=== PATIENT | male | born 1955 | race Caucasian/White ===

== ENCOUNTER 2025-09-16 09:24 | Inpatient (IN) | payer MEDICARE, SELFPAY ==
[2025-09-16] VITALS (13 sets, daily range): BP systolic 137–162; BP diastolic 76–102; PULSE 68–144; RESP 14–25; TEMP 36.1–37.3; O2SAT 95–99; BMI 37.5; BMI 36.4
--- NOTE | 2025-09-16 | ECG_ITS ---
Test Reason : tachycardia Blood Pressure : */* mmHG Vent. Rate : 126 BPM Atrial Rate : * BPM P-R Int : * ms QRS Dur : 78 ms QT Int : 300 ms P-R-T Axes : * 60 2 degrees QTcB Int : 434 ms Atrial fibrillation with rapid ventricular response Nonspecific ST abnormality Abnormal ECG When compared with ECG of 16-Sep-2025 13:31, No significant change was found Referred By: Oksana Gregg Electronically Signed By: RALPH GRIFFIN MD
--- NOTE | 2025-09-16 | ECG_ITS ---
Test Reason : SOB Blood Pressure : */* mmHG Vent. Rate : 90 BPM Atrial Rate : * BPM P-R Int : * ms QRS Dur : 80 ms QT Int : 380 ms P-R-T Axes : * 6 2 degrees QTcB Int : 464 ms Atrial fibrillation Septal infarct , age undetermined Abnormal ECG No previous ECGs available Referred By: Gloria Bauman Electronically Signed By: RALPH GRIFFIN MD
--- NOTE | ~2025-09-16 | XR_ITS ---
EXAMINATION: XR CHEST CLINICAL INFORMATION: SOB COMPARISON: Degenerative 2009 is not available on PACS. TECHNIQUE: Frontal view of the chest was obtained. FINDINGS: Poor inspiration. No consolidation, pleural effusion or pneumothorax. Cardiomediastinal silhouette size is normal. Level spondylosis. Degenerative changes in the shoulders. XR/XR chest 1V IMPRESSION: No gross acute airspace disease. Poor inspiration. Electronically signed by: Moises Avery MD 09/16/2025 11:02 AM [facility]
--- NOTE | ~2025-09-16 | CT_ITS ---
CLINICAL HISTORY: sob, tachycardia Exam: Contrast-enhanced chest CT pulmonary angiogram with multiplanar reformats. Comparison: None. Findings: There is no pulmonary embolism or thoracic aortic dissection. No mediastinal or hilar masses or adenopathy. No pleural or pericardial effusions. Images below the diaphragms reveal no acute abnormalities. Cholelithiasis is present, without CT evidence of cholecystitis. Lungs reveal bilateral lower lobe atelectasis. No focal consolidation or parenchymal lesions. Airways are patent with mild bilateral lower lobe bronchial wall thickening. No pneumothorax. Osseous structures reveal no destructive osseous lesions. Impression: 1. No pulmonary embolism, aortic dissection or acute pulmonary disease. This document has been electronically signed by: Fredrick Carter MD on 09/18/2025 13:52:20
--- NOTE | 2025-09-16 09:33 | ED_ITS ---
HPI - General Adult General Chief complaint: Dyspnea Stated complaint: SOB,SICK X3D,COUGH PER EMS Time Seen by Provider: 09/16/25 09:33 Source: patient, EMS, RN notes reviewed and old records reviewed Mode of arrival: EMS Limitations: no limitations History of Present Illness ED Provider: ESTEFANI Bauman HPI narrative: 70-year-old male with medical history of asthma presents to the ED due to 3 days of cough with yellow sputum production, SOB, and chills. Patient states he has been using inhalers at home, without effect and thought he had an illness that required antibiotics prompting him to come to the ED for evaluation. Patient denies sick contacts, nausea, vomiting, abdominal pain, headache, diarrhea, urinary symptoms MD complaint: cough, SOB, chills Related Data Previous Rx's ?Medication ?Instructions ?Recorded prednisone 20 mg tablet 40 mg (2 x 20 mg) PO DAILY 5 days 09/16/25 #10 tabs Allergies Allergy/AdvReac Type Severity Reaction Status Date / Time No Known Allergies Allergy Verified 09/16/25 09:37 Review of Systems 2 Review of Systems: Yes all other systems are reviewed and are negative [facility] Past Medical History Attestation statement: The following information was validated with the patient. Source: old records reviewed and nursing notes reviewed Social History Social History Advance Directives: No Advance Directives Information Provided: Yes Do you have a plan to hurt others: No Plan Physical Exam ED Vital Signs: Vital Signs - 24 hr 09/16/25 09:33 09/16/25 11:06 09/16/25 11:37 Temperature 97 F 97.5 F Pulse Rate 69 104 H 90 Respiratory Rate 20 25 H 20 Blood Pressure 147/94 H 140/87 H Pulse Oximetry 97 97 Oxygen Delivery Method Nasal Cannula Nasal Cannula Oxygen Flow Rate 2 09/16/25 12:00 Temperature 97.9 F Pulse Rate 98 Respiratory Rate 14 Blood Pressure 138/77 Pulse Oximetry 96 Oxygen Delivery Method Room Air Oxygen Flow Rate BMI result Body Mass Index 37.5 GENERAL APPEARANCE: ?AxOx4, no acute distress. HEENT: ?NC, AT. MMM. EOMI, clear conjunctiva, oropharynx clear. NECK: ?Supple without lymphadenopathy.? No stiffness or restricted ROM. HEART:? Normal rate and regular rhythm, normal S1/S2, no m/r/g LUNGS:? CTAB, moving air well. No crackles or wheezes are heard. ABDOMEN: ?Soft, nontender, nondistended BACK: No CVAT, no obvious deformity. EXTREMITIES: ?Without cyanosis, clubbing or edema. NEUROLOGICAL: ?Grossly nonfocal. Alert and oriented, moving all 4 extremities. Skin: ?Warm and dry without any rash. Medications Administered Discontinued Medications Generic Name Dose Route Start Last Admin Trade Name Freq PRN Reason Stop Dose Admin Albuterol/Ipratropium 3 ml 09/16/25 11:04 09/16/25 11:13 Albuterol/Iprat 2.5/0.5mg 3 Ml Ampul.Neb INHALE 09/16/25 11:05 3 ml ONCE ONE Administration Methylprednisolone Sodium Succinate 60 mg 09/16/25 10:45 09/16/25 11:18 Methylprednisolone Sod Succ 125 Mg/2 Ml Vial IVPUSH 09/16/25 10:46 60 mg ONCE ONE Administration Medical Decision Making Medical Decision Making MDM Narrative: 1-year-old male with medical history of asthma presents to the ED due to 3 days of cough with yellow sputum production, SOB, and chills. Patient states he has been using inhalers at home, without effect and thought he had an illness that required antibiotics prompting him to come to the ED for evaluation. Patient comes in by ambulance and was satting 97% however was put on 2l NC for comfort . VS on initial observation-BP 147/94, pulse rate of 69, respiratory rate of 20, afebrile with oral temp of 97, O2 saturation 97 percent on 2 liters nasal cannula. Labs without leukocytosis/leukopenia, H&H stable, no electrolyte abnormalities Lab Data 09/16/25 09:47 09/16/25 09:47 Labs: Lab Results 09/16/25 09/16/25 Range/Units 09:47 09:59 WBC 7.6 (4.8-10.8) X10*3/uL RBC 4.57 L (4.60-5.80) X10*6/uL Hgb 14.3 (14.0-18.0) g/dl Hct 43.1 (42.0-52.0) % MCV 94.3 (80.0-98.0) fL MCH 31.3 (27.0-33.0) pg MCHC 33.2 (31.0-36.0) g/dl RDW 12.6 (11.0-16.0) % Plt Count 202 (160-400) X10*3/uL MPV 10.1 (9.4-12.4) fL Immature Gran % (Auto) 0.3 (0.0-0.4) % Neut % (Auto) 62.8 (45-73) % Lymph % (Auto) 28.5 (20-40) % Beauregard % (Auto) 5.9 (2-11) % Eos % (Auto) 1.8 (0-4) % Baso % (Auto) 0.7 (0-2) % Lymph # (Auto) 2.2 (1.2-4.9) X10*3/uL Beauregard # (Auto) 0.5 (0.1-1.2) X10*3/uL Eos # (Auto) 0.1 (0.0-0.4) X10*3/uL Baso # (Auto) 0.1 (0.0-0.2) X10*3/uL Abs Immat Gran (auto) 0.02 (0.00-0.03) X10*3/uL Absolute Neuts (auto) 4.8 (2.0-8.3) x10*3/uL Absolute Nucleated RBC 0.000 (0.0-0.012) X10*3/uL Nucleated RBC % (auto) 0.0 (0.0-0.2) /100WBC VBG pH 7.44 H (7.32-7.43) VBG pCO2 42 mmHg VBG pO2 146 mmHg VBG HCO3 29 H (22-26) mmol/L VBG O2 Saturation 100.0 % VBG Base Excess 5.0 mmol/L Sodium 144 (135-145) mmol/L Potassium 3.5 (3.3-5.1) mmol/L Chloride 109 H (96-108) mmol/L Carbon Dioxide 27 (22-29) mmol/L Anion Gap 12 (12-20) BUN 13 (9-16) mg/dL Creatinine 1.02 (0.5-1.4) mg/dL Estim Creat Clear Calc 100.2 Estimated GFR > 60 Random Glucose 129 H (60-115) mg/dL Lactic Acid 1.8 (0.5-2.0) mmol/L Calcium 8.1 L (8.4-10.2) mg/dL Magnesium 1.9 (1.6-2.6) mg/dL Total Bilirubin 0.9 (0.0-1.0) mg/dL AST 18 (5-37) U/L ALT 12 (0-40) U/L Alkaline Phosphatase 70 (39-117) U/L Troponin I High Sens 3.2 (<3.5-35.0) ng/L Total Protein 6.6 (6.5-8.0) g/dL Albumin 3.9 (3.5-5.0) g/dL COVID-19 (MARCY) Positive A (Negative) COVID-19 Clin Com See Note Influenza Type A (JOHNNIE) Negative (Negative) Influenza Type B (JOHNNIE) Negative (Negative) Influenza A & B Note See Note Discharge Plan Discharge Clinical Impression: COVID-19 Patient Disposition: Home, Self-Care Instructions: Droplet Precautions (ED), Face Coverings (Masks) and COVID-19 (ED), How to Recover from COVID-19 at Home (ED) Additional Instructions: You were evaluated in the emergency department for shortness of breath, cough. Your labs are reassuring as there are no emergent abnormalities. Your viral swabs were positive for COVID infection today which is most likely the cause of your symptoms. COVID-19 is a self-limiting virus, ensure you were getting plenty of hydration, rest, and nutritious food as tolerated. It is normal for your appetite to be decreased during this time, make sure you are getting plenty of hydration through sports drinks, Pedialyte as you await the return of your appetite. To manage fever and/or pain at home you can take 500 milligrams of Tylenol, 400 milligrams of ibuprofen every 6 hours and use your albuterol inhalers as needed. You do not need an antibiotic as this is viral, however you are being prescribed a 5 day course of 40 milligrams prednisone for shortness of breath. Please follow up with your primary care doctor to ensure resolution of your symptoms. Please return to the emergency department if you experience fevers over 100.4 degrees that are not managed by Tylenol/ibuprofen, worsening shortness of breath, or any new/worsening/concerning symptoms. Prescriptions: New prednisone 20 mg tablet 40 mg PO DAILY 5 Days Qty: 10 0RF Print Language: Persian
[2025-09-16 09:58] LABS: MANUAL DIFF FLAG NO
[2025-09-16 10:01] LABS: Hematocrit 43.1 % (42.0-52.0); Hemoglobin 14.3 g/dl (14.0-18.0); Imm Gran Abs Auto 0.02 X10*3/uL (0.00-0.03); Imm Gran Pct Auto 0.3 % (0.0-0.4); Lymphocytes Absolute Auto 2.2 X10*3/uL (1.2-4.9); Mean Corpuscular HGB Conc 33.2 g/dl (31.0-36.0); Mean Corpuscular Hemoglobin 31.3 pg (27.0-33.0); Mean Corpuscular Volume 94.3 fL (80.0-98.0); NRBC Abs Auto 0.000 X10*3/uL (0.0-0.012); NRBC Pct Auto 0.0 /100WBC (0.0-0.2); Platelet Count 202 X10*3/uL (160-400); Red Blood Count 4.57 X10*6/uL (4.60-5.80); White Blood Count 7.6 X10*3/uL (4.8-10.8)
[2025-09-16 10:02] LABS: VBG HCO3 29 mmol/L (22-26); VBG O2 % Saturation 100.0 %
[2025-09-16 10:03] LABS: Venous Blood Gas Refer to POC result
[2025-09-16 10:13] LABS: COVID-19 Test Positive (Negative); IDNOW Serial# 58CA691E
[2025-09-16 10:16] LABS: IDNOW Serial# 55D5AD1C; Influenza B2 Negative (Negative)
[2025-09-16 10:23] LABS: Alanine Aminotransferase 12 U/L (0-40); Albumin Level 3.9 g/dL (3.5-5.0); Alkaline Phosphatase 70 U/L (39-117); Anion Gap 12 (12-20); Aspartate Amino Transferase 18 U/L (5-37); Blood Urea Nitrogen 13 mg/dL (9-16); Calcium 8.1 mg/dL (8.4-10.2); Carbon Dioxide 27 mmol/L (22-29); Chloride 109 mmol/L (96-108); Creatinine Clr Calc Pharmacy 100.2; Estimated Glomerular Filt Rate > 60; Magnesium 1.9 mg/dL (1.6-2.6); Potassium 3.5 mmol/L (3.3-5.1); Sodium 144 mmol/L (135-145); Total Protein 6.6 g/dL (6.5-8.0)
[2025-09-16 10:27] LABS: Troponin-I High Sensitivity 3.2 ng/L (<3.5-35.0)
[2025-09-16] MEDS: Albuterol/Iprat 2.5/0.5MG 3 ML AMPUL.NEB INHALE ×3 (11:13→23:58)
--- NOTE | 2025-09-16 12:39 | MHC.EDTECH ---
Patient, Ambulated with Oxygen saturation of 95% and heart rate of 150 bpm
--- OUTSIDE RECORDS SUMMARY | 2025-09-16 13:13 | XMS_ITS | Clinical Summary ---
Author Organization [facility] Address [address] [place] [address] Phone Care Team Providers Care Automation Specialist Name Role Phone Leona Cabrera MD Primary Care Provider [phone] Allergies Active Allergy Reactions Criticality Noted Date Comments Cat Dander 02/28/2018 Lactase Cough 02/28/2018 Other 02/28/2018 Medications ipratropium-albute roL (DUONEB) 0.5-2.5 mg/3 mL nebulizer solution Take 3 mL by nebulization 4 times daily as needed (SOB). 06/15/20 24 Active triamcinolone (KENALOG) 0.1 % cream Apply to affect area 2 times daily. 06/15/20 24 Active acetaminophen (TYLENOL) 325 mg tablet Take 650 mg by mouth every 6 hours as needed. Active atorvastatin (LIPITOR) 10 mg tabletIndications: Mixed hyperlipidemia,Enc ounter for screening for cardiovascular disorders Take 1 tablet (10 mg total) by mouth 1 (one) time each day. 30 each 11/10/19 25 026 Active tamsulosin (FLOMAX) 0.4 mg 24 hr capsuleIndications :Elevated prostate specific antigen (PSA),Nocturia Take 1 capsule (0.4 mg total) by mouth 1 (one) time each day. Capsules should be taken 30 minutes following the same meal each day. 30 each 11/10/19 25 026 Active albuterol HFA (Ventolin HFA) 90 mcg/actuation inhalerIndications :Chronic obstructive pulmonary disease, unspecified COPD type (CMS/HCC V24, CMS/HCC V28) Inhale 2 puffs by mouth every 4 (four) hours if needed for wheezing. 6.7 g 6 09/15/20 25 Active Active Problems Problem Noted Date Diagnosed Date Elevated prostate specific antigen (PSA) 021 Assessment & Plan (11/10/2024 6:24 PM EST): PSA was elevated. Will repeat PSA level today. Also reiterated to patient to schedule appointment with urology. Another referral was sent. Patient advised to contact office if he develop any urinary retention or hematuria. Patient advised to call office if he develop hematuria, dysuria or urinary retention. Orders: Prostate specific antigen screen; Future Comprehensive metabolic panel; Future Thyroid stimulating hormone with reflex to free t4 and free t3; Future tamsulosin (FLOMAX) 0.4 mg 24 hr capsule; Take 1 capsule (0.4 mg total) by mouth 1 (one) time each day. Capsules should be taken 30 minutes following the same meal each day. Ambulatory referral to Urology; Future Microalbumin, protein and creatinine with ratio, urine, random; Future Urinalysis with reflex microscopic and culture; Future Essential hypertension 06/04/2018 Assessment & Plan (11/10/2024 6:24 PM EST): Blood pressure stable. Patient is to maintain a low-sodium diet. Discussed the complications of hypertension and when to seek treatment. If blood pressure is 140/90 twice patient is to contact the office. Orders: Comprehensive metabolic panel; Future Thyroid stimulating hormone with reflex to free t4 and free t3; Future Overweight 06/04/2018 COPD (chronic obstructive pu lmonary disease) ([facility] V24, [facility] V28) 05/05/2018 Assessment & Plan (11/10/2024 6:24 PM EST): Patient is to continue Ventolin as needed. If patient is utilizing Ventolin daily we will need to start him on inhaled corticosteroid and refer to pulmonology. However, patient stated he is not. Discussed the prognosis of COPD and when patient is to follow-up. Orders: albuterol HFA (Ventolin HFA) 90 mcg/actuation inhaler; Inhale 2 puffs by mouth every 4 (four) hours if needed for wheezing. Comprehensive metabolic panel; Future Thyroid stimulating hormone with reflex to free t4 and free t3; Future DDD (degenerative disc disease), lumbar 05/05/20 18 Immunizations Immunization Administration Dates Next Due Influenza Quadravalent, MDCK , 0.5ml, preservative free (Flucelvax) 6mo and older 10/08/2019 Influenza trivalent, 0.5mL (Fluad) 65yo and olde r 08/22/2023,07/31/2021 Pneumococcal conjugate 20 va lent (Prevnar 20, PCV 20) 2mo and older 02/18/2024 Tdap Tetanus diptheria acell ular pertussis (Boostrix; Adacel) 7yo and older 02/18/2024 Surgical History Surgery Date Site/Laterality Comments BACK SURGERY PROCEDURE: HISTORICAL BACK SURGERY; COMMENT: L4-5 Medical History Medical History Date Comments Bronchitis DX:Bronchitis DDD (degenerative disc disea se), lumbar DX:DDD (degenerative disc di sease), lumbar Essential hypertension 06/04/2018 DX:Essent ial hypertension Family History Medical History Relation Name Comments Other: no details, at age 88 Father Other: from leukemia, atage 78, no details Mother Relation Name Status Comments Father Mother Social History Tobacco Use Types Packs/Day Years Used Date Smoking Tobacco: Never Smokeless Tobacco: Never Tobacco Cessation:Counseling Given: Not Answered Alcohol Use Standard Drinks/Week Comments No 0 (1 standard drink = 0.6 oz pur e alcohol) Sex and Gender Information Value Date Recorded Sex Assigned at Not on file Legal Sex Male 12:41 PM EST Gender Identity Not on file Sexual Orientation Not on file Obstetrics History Last Filed Vital Signs Vital Sign Reading Time Taken Comments Blood Pressure 132/83 05/10/2025 3:21 PM EDT Pulse 68 05/10/2025 3:21 PM EDT Temperature 36.1 C (96.9 F) 05/10/2025 3:21 PM EDT Respiratory Rate 20 05/10/2025 3:21 PM EDT Oxygen Saturation 97% 11/10/2024 4:17 PM EST Inhaled Oxygen Concentration - - Weight 133 kg (293 lb) 05/10/2025 3:21 PM EDT Height 191.8 cm (6' 3.5 ) 05/10/2025 3:21 PM EDT Body Mass Index 36.14 05/10/2025 3:21 PM EDT Plan of Treatment Health Maintenance Due Date Last Done Comments Colorectal Cancer Screening: Colonoscopy 1955 RSV Immunization Adult Patients (1 - Risk 50-74 years 1-dose series) 2005 Zoster Vaccines (1 of 2) 2005 Medicare Annual Wellness Visit 10/02/2022 Social Influencers of Health Screening 10/02/2022 COVID-19 Vaccine (4 - 2024- season) 2025 08/28/2021, 01/28/2021, 12/31/2020 Influenza Vaccine (#1) 2025 , 07/31/2021, 10/08/2019, Additional history exists Falls Risk Assessment 11/10/2025 11/10/2024 Hypertension/CHF/CAD Annual BMP Blood Test 11/10/2025 11/10/2024, 06/15/2024, 06/15/2024 Cholesterol Screening (Lipid Panel) 11/10/2029 11/10/2024, 02/18/2024 DTaP,Tdap,and Td Vaccines (2 - Td or Tdap) 02/17/2034 02/18/2024 Hepatitis C Screening Completed 02/18/2024 Pneumococcal Vaccine: 50+ Years Completed 02/18/2024, 02/13/2018, 09/13/2007 Depression Screening Completed 11/10/2024 HIB Vaccines Aged Out No longer eligi ble based on patient's age to complete this topic HPV Vaccines Aged Out No longer eligi ble based on patient's age to complete this topic Hepatitis A Vaccines Aged Out No long er eligible based on patient's age to complete this topic Hepatitis B Vaccines Aged Out No long er eligible based on patient's age to complete this topic IPV Vaccines Aged Out No longer eligi ble based on patient's age to complete this topic MMR Vaccines Aged Out No longer eligi ble based on patient's age to complete this topic Meningococcal ACWY Vaccine Aged Out N o longer eligible based on patient's age to complete this topic Meningococcal B Vaccine Aged Out No l onger eligible based on patient's age to complete this topic RSV Immunization Patients Under 20 months Aged Out No longer eligible based on patient's age to complete this topic Varicella Vaccines Aged Out No longer eligible based on patient's age to complete this topic Procedures Procedure Name Priority Date/Time Associated Diagnosis Comments COMPREHENSIVE METABOLIC PANEL Routine 11/10/2024 4:50 PM EST Chronic obstructive pulmonary disease, unspecified COPD type (CMS/HCC V24, CMS/HCC V28) Essential hypertension Encounter for screening for cardiovascular disorders Elevated prostate specific antigen (PSA) LIPID PANEL WITH REFLEX TO DIRECT LDL Routine 11/10/2024 4:50 PM EST Encounter for screening for cardiovascular disorders HM HEPATITIS C SCREENING Routine 02/18/2024 from Last 3 Months or Most Recently Relevant to Health Maintenance Results * Lipid panel with reflex to direct LDL (11/10/2024 4:50 PM EST) Cholesterol 157 0 - 200 mg/dL LAB CHEMISTRY METHOD 11/10/2024 6:51 PM EST [facility] Triglycerides 78 0 - 150 mg/dL LAB CHEMISTRY METHOD 11/10/2024 6:51 PM [facility] HDL 51 >=40 mg/dL LAB CHEMISTRY METHOD 11/10/2024 6:51 PM EST [facility] LDL Calculated 90 0 - 100 mg/dL LAB CHEMISTRY METHOD 11/10/2024 6:51 PM EST [facility] VLDL Cholesterol Anand 15.6 mg/dL LAB CHEMISTRY METHOD 11/10/2024 6:51 PM [facility] Non HDL Chol. (LDL+VLDL) 106 <145 mg/dL LAB CHEMISTRY METHOD 11/10/2024 6:51 PM [facility] Chol/HDL Ratio 3.1 0.0 - 4.4 LAB CHEMISTRY METHOD 11/10/2024 6:51 PM [facility] Blood Venous blood specimen / Unknown Venipuncture / Unknown 11/10/2024 4:50 PM EST 11/10/2024 4:50 PM EST us Harpreet Sims NP LAB BLOOD ORDERABLES Final R esult [facility] [address] [place] [address], [place] [phone] * (ABNORMAL) Comprehensive metabolic panel (11/10/2024 4:50 PM EST) Sodium 140 133 - 145 mmol/L LAB CHEMISTRY METHOD 11/10/2024 6:51 PM [facility] Potassium 4.2 3.5 - 5.5 mmol/L LAB CHEMISTRY METHOD 11/10/2024 6:51 PM [facility] Chloride 109 96 - 110 mmol/L LAB CHEMISTRY METHOD 11/10/2024 6:51 PM [facility] CO2 26 21 - 32 mmol/L LAB CHEMISTRY METHOD 11/10/2024 6:51 PM [facility] Anion Gap 5 3 - 11 LAB CHEMISTRY METHOD 11/10/2024 6:51 PM [facility] Glucose 114(H) 70 - 100 mg/dL LAB CHEMISTRY METHOD 11/10/2024 6:51 PM [facility] BUN 20 5 - 25 mg/dL LAB CHEMISTRY METHOD 11/10/2024 6:51 PM [facility] Creatinine 1.17 0.70 - 1.30 mg/dL LAB CHEMISTRY METHOD 11/10/2024 6:51 PM [facility] eGFR 67 >=60 mL/min/1. 73m2 LAB CHEMISTRY METHOD 11/10/2024 6:51 PM [facility] Comment:Calculation based on the Chronic Kidney Disease Epidemiology Collaboration (CKD-EPI) equation refit without adjustment for race. BUN/Creatinine Ratio 17.1 LAB CHEMISTRY METHOD 11/10/2024 6:51 PM [facility] Calcium 8.6 8.5 - 10.5 mg/dL LAB CHEMISTRY METHOD 11/10/2024 6:51 PM [facility] AST (SGOT) 13 10 - 42 unit/L LAB CHEMISTRY METHOD 11/10/2024 6:51 PM [facility] ALT (SGPT) 18 10 - 60 unit/L LAB CHEMISTRY METHOD 11/10/2024 6:51 PM EST [facility] Alkaline Phosphatase 80 42 - 121 unit/L LAB CHEMISTRY METHOD 11/10/2024 6:51 PM EST [facility] Total Protein 7.4 6.0 - 8.0 g/dL LAB CHEMISTRY METHOD 11/10/2024 6:51 PM EST [facility] Albumin 3.9 3.2 - 5.0 g/dL LAB CHEMISTRY METHOD 11/10/2024 6:51 PM EST [facility] Total Bilirubin 0.9 0.0 - 1.4 mg/dL LAB CHEMISTRY METHOD 11/10/2024 6:51 PM [facility] Blood Venous blood specimen / Unknown Venipuncture / Unknown 11/10/2024 4:50 PM EST 11/10/2024 4:50 PM EST Harpreet Sims [employer] LAB BLOOD ORDERABLES Final R esult [facility] [address] [place] [address], * Hepatitis C Screening (02/18/2024) Pathologist [facility] Hepatitis C Screening abstracted Historical Provider HEALTH MAINTENANCE Final Result from Last 3 Months or Most Recently Relevant to Health Maintenance Insurance MEDICARE [place]ICAID [place] Care Teams Automation Specialist Relationship Specialty Start Date End Date Leona Cabrera MD [address] [place] [address] PCP - General Internal Medicine 02/20/18
--- NOTE | 2025-09-16 13:26 | ECG_ITS ---
Test Reason : A-FIB/EVAL FOR RVS Blood Pressure : */* mmHG Vent. Rate : 110 BPM Atrial Rate : * BPM P-R Int : * ms QRS Dur : 84 ms QT Int : 374 ms P-R-T Axes : * 14 2 degrees QTcB Int : 506 ms Atrial fibrillation with rapid ventricular response Low voltage QRS Septal infarct (cited on or before 16-Sep-2025) Abnormal ECG When compared with ECG of 16-Sep-2025 09:49, No significant change was found Referred By: Gloria Bauman Electronically Signed By: RALPH GRIFFIN MD
--- NOTE | 2025-09-16 14:30 | PHA.MEDREC ---
Addendum entered by Vitaliy Malagon PharmD 09/16/25 14:32: reviewed Original Note: Pharmacy Consult ? Medication Reconciliation Pharmacy has completed the medication reconciliation. Patient was able to confirm his medications. Patient last had his medications last night.
--- NOTE | 2025-09-16 14:33 | P.HPHOSP_ITS ---
History of Present Illness Date of Service: 09/16/25 Attending physician on admission: Sabino [facility] Chief Complaint: new afib This is a 70 year old male who presented to the emergency department with shortness of breath. He states that he has had a head cold and thought he had the flu. He reports 3 days of cough productive of yellow phlegm, intermittent shortness of breath and nasal congestion. In the emergency department chest x- ray was negative for pneumonia, he tested positive for COVID 19. He was treated with IV solu-medrol and a breathing treatment and initially he was going to be discharged home however he was noted to be in new onset atrial fibrillation with rapid ventricular response. He was treated with Iv solu-medrol and a breathing treatment and admission was requested overnight for observation Review of Systems 2 Review of Systems: Yes all other systems are reviewed and are negative Constitutional: Constitutional: Denies chills and Denies fever(s) Cardiovascular: Cardiovascular: Denies chest pain, Reports palpitations and Denies dyspnea Respiratory: Respiratory: Denies cough and Denies dyspnea Endocrine: Endocrine: Reports palpitations [facility] Medical History BPH (benign prostatic hyperplasia) Social History Household Members: None Housing: Apartment Housing Other:: Rooming house Do you presently have visiting nurse or other home services: No Patient Tobacco Use Status: Never used Tobacco Currently Displaying Signs/Symptoms of Drug Intoxication Withdrawal: No Do you feel safe in your current relationship?: Yes Spiritual Healthcare Practices: Orthodox Advance Directives: No Advance Directives Information Provided: Yes Do you have a plan to hurt others: No Plan Recently lost weight without trying: Unsure Eating poorly because of decreased appetite: Yes Nutrition Risks: No Nutritional Risk Meds Allergies Allergy/AdvReac Type Severity Reaction Status Date / Time No Known Allergies Allergy Verified 09/16/25 09:37 Home Medications ?Medication ?Instructions ?Recorded ?Confirmed ?Last Taken ?Type albuterol sulfate 90 mcg/actuation 1 puff inhalation Q 6H PRN 09/16/25 09/16/25 Unknown History aerosol inhaler Shortness Of Breath Or Wheez ing atorvastatin 10 mg tablet 10 mg PO DAILY 09/16/2509/0409/15/25 History tamsulosin 0.4 mg capsule 0.4 mg PO DAILY 09/16/2509/15/25 History Physical Exam 2 Vital Signs and Narrative: Vital Signs: Last Vital Signs Temp 97.9 F 09/16/25 12:00 Pulse 98 09/16/25 12:00 Resp 14 09/16/25 12:00 BP 138/77 09/16/25 12:00 Pulse Ox 96 09/16/25 12:00 O2 Del Method Room Air 09/16/25 12:00 O2 Flow Rate 2 09/16/25 11:37 Oxygen Flow Rate 2 09/16/25 09:33 BMI result Body Mass Index 37.5 Const: General: cooperative, comfortable, alert and awake Nutritional Appearance: obese Orientation/consciousness: patient oriented x3 Resp: Other: b/l wheeze Effort & Inspection: normal respiratory effort, able to speak in complete sentences, no respiratory distress and no use of accessory muscles Cardio: Rate: tachycardic GI: Inspection: No distended Palpation (GI): Soft to palpation Neuro: General: patient oriented x3 and moves all extremities Results Labs 09/16/25 09:47 09/16/25 09:47 Labs: Laboratory Results - last 24 hr 09/16/25 09/16/25 09:47 09:59 MCV 94.3 MCH 31.3 MCHC 33.2 RDW 12.6 Plt Count 202 MPV 10.1 Immature Gran % (Auto) 0.3 Neut % (Auto) 62.8 Lymph % (Auto) 28.5 Davie % (Auto) 5.9 Eos % (Auto) 1.8 Baso % (Auto) 0.7 Lymph # (Auto) 2.2 Davie # (Auto) 0.5 Eos # (Auto) 0.1 Baso # (Auto) 0.1 Abs Immat Gran (auto) 0.02 Absolute Neuts (auto) 4.8 Absolute Nucleated RBC 0.000 Nucleated RBC % (auto) 0.0 VBG pH 7.44 H VBG pCO2 42 VBG pO2 146 VBG HCO3 29 H VBG O2 Saturation 100.0 VBG Base Excess 5.0 Anion Gap 12 Estim Creat Clear Calc 100.2 Estimated GFR > 60 Random Glucose 129 H Lactic Acid 1.8 Calcium 8.1 L Magnesium 1.9 Total Bilirubin 0.9 AST 18 ALT 12 Alkaline Phosphatase 70 Troponin I High Sens 3.2 Total Protein 6.6 Albumin 3.9 COVID-19 (MARCY) Positive A COVID-19 Clin Com See Note Influenza Type A (JOHNNIE) Negative Influenza Type B (JOHNNIE) Negative Influenza A & B Note See Note Imaging Radiologist's Impressions: Impressions Chest X-Ray 09/16/25 10:50 IMPRESSION: No gross acute airspace disease. Poor inspiration. Electronically signed by: Moises Avery MD 09/16/2025 11:02 AM [facility] Assessment and Plan (1) COVID-19: Status: Acute (2) New onset atrial fibrillation: Status: Acute Plan This is a 70year old male with history of asthma, BPH who presented to the hospital with 3 days of respiratory symptoms found to have COVID-19 and new onset atrial fibrillation new onset atrial fibrillation with rapid ventricular response chads 2 Vasc score 1, will start aspirin 81 mg start lopressor 25 mg bid, can titrate as needed for goal HR around 90 check TSH check echo close cardiac monitoring COVID 19 no hypoxia supportive care acute asthma exacerbation likely due to covid 19 prn breathing treatments IV solu-medrol BPH continue flomax HLD continue statin dvt ppx - lovenox Quality Stroke Does the patient have a stroke diagnosis?: No VTE Prior VTE?: No VTE Risk Level:: Medical - moderate - high VTE Device Contraindication: N/A - Device Ordered VTE Drug Contraindication: N/A - Med Ordered
[2025-09-16] MEDS: Aspirin Enteric Coated 81 MG TABLET.DR PO (15:05)
[2025-09-16 15:48] LABS: D Dimer High Sensitivity < 150 NG/ML
--- NOTE | 2025-09-16 16:46 | HO.NURTONUR ---
Pt presenting to ED w/ cough / SOB x 3 days COVID + found to be in new afib, HR ranging from 90's - 110's. Dimer neg. Trop Neg. ECHO ordered, Lopressor starting tonight Alert and Oriented, able to walk to BR w/o assistance, minor bump in HR after walking. 20 L AC
--- NOTE | 2025-09-16 18:46 | PC.NURSE ---
Pt alert and oriented x4. Lives at a rooming house, independently. Reports mild SOB upon arrival, deferred breathing treatment until after eating. He has been eating poorly for the past three days r/t feeling ill. His initial heart rate was in the 90's, but it went up to 130's-150 while sitting at edge of bed, rhythm is a-fib. Pt denies pain (it improved after nebulizer in ED). Lung sounds clear.
[2025-09-16] MEDS: Lactated Ringers 500 ML 999 ML IV (22:10)
[2025-09-17] VITALS (17 sets, daily range): BP systolic 102–136; BP diastolic 65–90; PULSE 68–140; RESP 18–22; TEMP 36.2–36.9; O2SAT 92–96
[2025-09-17] MEDS: Albuterol/Iprat 2.5/0.5MG 3 ML AMPUL.NEB INHALE ×4 (05:17→23:33)
--- NOTE | 2025-09-17 07:00 | CA_ITS ---
Transthoracic Echocardiogram Patient (Last, First, Middle): Be Castanon J Gender: M Date of : 1955 Age: 70 Procedure Date: 09/17/2025 Procedure Type: Transthoracic Echocardiogram Location: [facility] Height: 190.5 cm Weight: 136.08 kg BSA: 2.61 m2 Heart Rate: 91 bpm BP: 138 / 77 mmHg Dental Lab Technician: Referring MD: Radha HARRELL Animal Researcher: Won Araujo MD Symptoms: new afib Study Quality: Fair ECG Rhythm: Atrial Fibrillation Conclusions: - 1. Normal LV ejection fraction of 55-60% 2. Dilated right-sided chambers with moderately enlarged right atrium with preserved RV contractility 3. Mildly dilated left atrium 4. Mild mitral regurgitation 5. Normal RV systolic pressure 6. Mildly dilated ascending aorta at 3.7 cm 7. No pericardial effusion Findings Left Ventricle Normal left ventricular size and systolic function. There is mildly increased left ventricular wall thickness. The visually estimated ejection fraction is between 55-60%. Diastolic function is indeterminate on the basis of available data. Right Ventricle Mildly increased right ventricular cavity size. There is normal right ventricular systolic function. Atria The left atrium is mildly dilated. There is no evidence of interatrial shunt. The right atrium is moderately dilated. Aortic Valve There is mild calcification of the aortic valve. There is no aortic valve stenosis. There is no aortic valve regurgitation. Mitral Valve There is mild anterior and posterior mitral leaflet thickening. There is mild mitral valve regurgitation. There is no mitral valve stenosis. Pulmonic Valve The pulmonic valve was not well visualized. Tricuspid Valve Likely normal tricuspid valve structure and function. There is trace tricuspid valve regurgitation. The right ventricular systolic pressure is 22 mmHg. Normal right atrial pressure. There is no evidence of pulmonary hypertension. Great Vessels The pulmonary artery was not well visualized. There is mild dilatation of the ascending aorta measuring 3.70 cm. Venous The inferior vena cava is normal in size and collapses greater than 50% with inspiration. Pericardium/Pleural There is no evidence of pericardial effusion. Prior Study Comparison No prior study available for comparison. Measurements 2D Linear Measurements IVSd: 1.21 0.6-0.9/0.6-1.0 cm LVIDd: 5.35 3.9-5.3/4.2-5.9 cm LVIDd Index: 2.05 2.4-3.2/2.2-3.1 cm/m2 LVIDs: 3.17 2.0-3.6 cm LVPWd: 1.20 0.7-1.1 cm LA Diam: 5.00 2.7-3.8/3.0-4.0 cm LAIDs Index: 1.92 1.5-2.3 cm/m2 LV Mass: 326.72 67-162/88-224 g LV Mass Index: 125.18 43-95/49-115 g/m2 LVOT Diam: 2.40 3.0+(-)1.3 cm 2D Systolic Function EF 4C: 64.00 >55% EF 2C: 46.80 >55% EF BiP: 56.50 >55% Mitral Valve MV Pk E: 1.11 MV Decel Time: 108.00 E'Lateral: 10.90 E'Medial: 7.07 E/E' Med: 15.70 E/E' Lat: 10.20 PHT: 32.00 MVA PHT: 6.88 Decel Leake: 10.31 Aortic Valve AoV Pk Jose: 1.45 AoV Mn Jose: 0.97 AoV VTI: 0.30 AoV Pk Grad: 8.00 Aov Mn Grad: 5.00 BLAIR Cont.VTI: 3.73 LVOT LVOT Pk Jose: 1.08 LVOT Mn Jose: 0.70 LVOT VTI: 0.25 LVOT Pk Grad: 5.00 LVOT Mn Grad: 2.00 LVOT Diam: 2.40 LVOT Area: 4.52 Diastolic Function MV Pk E: 1.11 E'Medial: 7.07 E/E' Med: 15.70 E' Laterial: 10.90 E/E' Lat: 10.20 Right Ventricle TAPSE (mm): 36.10 Tricuspid Valve TR Pk Jose: 2.19 TR Pk Grad: 19.00 RA Press: 3.00 RVSP: 22.00 Great Vessels Aorta Sinus of Valsalva: 3.70 2.0-3.5 cm Ao Asc: 3.70 2.1-3.4 cm Pulmonary Valve PV Pk Jose: 0.96 Peak PV Grad: 4.00 Updated in Other Vendor System with Status of Final Won Araujo MD electronically signed on 09/17/2025 11:52:31 AM with status of Final
[2025-09-17] MEDS: Aspirin Enteric Coated 81 MG TABLET.DR PO (07:46)
[2025-09-17] MEDS: 0.9 % Sodium Chloride Flush 3 ML SYRINGE IVFLUSH ×2 (07:47→20:30)
--- NOTE | 2025-09-17 12:24 | HO.PM.IMPN ---
Subjective Subjective Date of Service: 09/17/25 Interval History: f/u covid infection and afib with rvr no sob Physical Exam Exam: Exam: General: AO X 3, no acute distress Resp: CTA bilateral CVS: S1,S2, iregular iregular GI: +BS, NT, no distention Skin: No rash Neuro: motor grossly intact Psych: appropriate affect Vital Signs: Vital Signs: Last Vital Signs Temp 97.2 F 09/17/25 11:51 Pulse 95 09/17/25 11:51 Resp 18 09/17/25 11:51 BP 102/72 09/17/25 11:51 Pulse Ox 92 09/17/25 11:51 O2 Del Method Room Air 09/17/25 11:51 O2 Flow Rate 2 09/16/25 11:37 Oxygen Flow Rate 2 09/16/25 09:33 BMI result Body Mass Index 36.4 Objective Data Active Medications Acetaminophen (Acetaminophen 325 Mg Tablet) 650 mg PO Q6H PRN PRN Reason: Pain, Mild 1-3,fever,headache Last Admin: 09/16/25 21:56 Dose: 650 mg Documented By: LARRY Albuterol/Ipratropium (Albuterol/Iprat 2.5/0.5mg 3 Ml Ampul.Neb) 3 ml INHALE Q4H PRN PRN Reason: Shortness of Breath/Wheezing Last Admin: 09/17/25 10:01 Dose: 3 ml Documented By: YOMAIRA Aspirin (Aspirin Enteric Coated 81 Mg Tablet.Dr) 81 mg PO DAILY [facility] Last Admin: 09/17/25 07:46 Dose: 81 mg Documented By: DIONY Atorvastatin Calcium (Atorvastatin Calcium 10 Mg Tablet) 10 mg PO DAILY [facility] Last Admin: 09/17/25 07:45 Dose: 10 mg Documented By: DIONY Benzonatate (Benzonatate 100 Mg Capsule) 100 mg PO TID PRN PRN Reason: Cough Calcium Carbonate (Calcium Carbonate 750 Mg Tab.Chew) 750 mg PO Q4H PRN PRN Reason: Heartburn Enoxaparin Sodium (Enoxaparin Sodium 40 Mg/0.4 Ml Syringe) 40 mg SUBCUT Q24H [facility] Last Admin: 09/16/25 15:05 Dose: 40 mg Documented By: MAURO Guaifenesin/Dextromethorphan (Guaifenesin Dm 100/10/5 Ml 5 Ml Syrup) 5 ml PO Q6H PRN PRN Reason: Cough Diltiazem HCl 125 mg/ Sodium (Chloride) 125 mls @ 0 mls/hr IVCONT .Q0M [facility]; Protocol Last Titration: 09/17/25 01:09 Dose: 5 mg/hr, 5 mls/hr Documented By: LARRY Magnesium Hydroxide (Milk Of Magnesia 30 Ml Oral.Susp) 30 ml PO DAILY PRN PRN Reason: Constipation Melatonin (Melatonin 3 Mg Tablet) 6 mg PO BEDTIME PRN PRN Reason: Insomnia Methylprednisolone Sodium Succinate (Methylprednisolone Sod Succ 40 Mg/Ml Vial) 40 mg IVPUSH Q12H [facility] Last Admin: 09/17/25 09:30 Dose: 40 mg Documented By: DIONY Metoprolol Tartrate (Metoprolol Tartrate 25 Mg Tablet) 25 mg PO BID [facility]; Protocol Last Admin: 09/17/25 07:45 Dose: 25 mg Documented By: DIONY Ondansetron HCl (Ondansetron Hcl 4 Mg/2 Ml Vial) 4 mg IVPUSH Q8H PRN PRN Reason: Nausea and Vomiting Sodium Chloride (0.9 % Sodium Chloride Flush 3 Ml Syringe) 3 ml IVFLUSH QSHIFT [facility] Last Admin: 09/17/25 07:47 Dose: 3 ml Documented By: DIONY Tamsulosin HCl (Tamsulosin Hcl 0.4 Mg Capsule) 0.4 mg PO DAILY [facility] Last Admin: 09/17/25 07:45 Dose: 0.4 mg Documented By: DIONY Labs 09/16/25 09:47 09/16/25 09:47 Labs: Laboratory Results - last 24 hr 09/16/25 09/16/25 09:47 14:53 D-Dimer High Sensitivty < 150 TSH 2.14 Assessment and Plan (1) COVID-19: Status: Acute (2) New onset atrial fibrillation: Status: Acute Plan This is a 70year old male with history of asthma, BPH who presented to the hospital with 3 days of respiratory symptoms found to have COVID-19 and new onset atrial fibrillation new onset atrial fibrillation with rapid ventricular response chads 2 Vasc score 1, will start aspirin 81 mg has required iv cardizem continue metoprolol add eliquis d/t high thrombotic state with covid cardiology consult echo EF 55 to 60 COVID 19 no hypoxia supportive care acute asthma exacerbation likely due to covid 19 prn breathing treatments IV solu-medrol, change to PO steroid at dc BPH continue flomax HLD continue statin dvt ppx - lovenox Quality Stroke Does the patient have a stroke diagnosis?: No VTE Prior VTE?: No VTE Risk Level:: Medical - moderate - high VTE Device Contraindication: N/A - Device Ordered VTE Drug Contraindication: N/A - Med Ordered
--- NOTE | 2025-09-17 14:09 | PC.NURSE ---
Pt alert and oriented x4. Reports no pain today. Still requesting regular breathing treatments for SOB. Heart rates have been 90's to 120's on the diltiazem drip, a-fib. Pt up to side of bed for meals and up to toilet.
--- NOTE | 2025-09-17 14:42 | MHC.CM.PN ---
IMM 09/17/2025, PT W/COVID 19 AND AFIB, CM MET W/PT WHO REPORTS HE LIVES IN A ROOMING HOUSE, IS INDEP W/MOBILITY/ADL'S AT BASELINE, PT REPORTS HE DID TRY TO GET HOME HEALTH TO ASSIST W/LAUNDRY HOWEVER DIDN'T QUALIFY D/T HIS INCOME. PT REPORTS HIS GOAL FOR DC IS HOME SELF CARE. PT VERIFIES PCP IS DR. TREJO AND HAS BEEN EDUCTAED ON AND COMPLETED A HCP NAMING HIS DTR BERONICA GONZALEZ [phone] HIS HCA, NO ALTERNATE CHOSEN, PT RECEIVED ORIGINAL AND EDUCATIONAL HANDOUT, COPY UPLOADED TO [employer] AND PLACED IN CHART.
--- NOTE | 2025-09-17 17:35 | P.CDIM_ITS ---
PROVIDER RESPONSE TEXT: To clarify, the appropriate diagnosis supported by the clinical indicators: Moderate persistent QUERY TEXT: PHYSICIAN'S DOCUMENTATION REQUEST Date of Query: 09/17/2025 12:47 PM EST Patient Name: Be Castanon Admit Date: 09/17/2025 Dear Sabino Brice MD, A review of the medical record indicates additional documentation may be needed. Please review below and update the documentation accordingly. Clinical indicators: Progress note dated 09/17/25 - Acute asthma exacerbation likely due to Covid 19 prn breathing treatments IV Solu-medrol, change to PO steroid at dc. Based on the above, please clarify in the Progress Notes further specificity regarding the type of asthma: Mild intermittent Mild persistent Moderate persistent Severe persistent Exercise induced Other (explain) Clinically unable to determine (explain) Thank you, Alma Escamilla, CCS, CDIS Use of terms such as suspected, likely, concern for, or probable (associated with a specific diagnosis that is being evaluated, monitored, or treated as if it exists) are acceptable and can be coded in the inpatient setting, when documented at the time of discharge. Please use your independent medical judgment in providing your response. THIS QUERY IS PART OF THE PERMANENT MEDICAL RECORD
--- NOTE | 2025-09-17 18:03 | PC.NURSE ---
Pt's heart rates have been mostly in the 110's at rest. It has been as high as 150 with activity such as sitting at bedside. Pt was in 130's while eating dinner. Diltiazem titrated up to 10mg/hr at 1800.
[2025-09-18] VITALS (7 sets, daily range): BP systolic 126–147; BP diastolic 57–92; PULSE 80–103; RESP 18–20; TEMP 36.4–36.8; O2SAT 93–95
[2025-09-18] MEDS: Aspirin Enteric Coated 81 MG TABLET.DR PO (09:24)
[2025-09-18] MEDS: 0.9 % Sodium Chloride Flush 3 ML SYRINGE IVFLUSH (09:24)
--- NOTE | 2025-09-18 11:15 | P.CONCA_ITS ---
History of Present Illness History of Present Illness Date of Service: 09/18/25 Requesting physician: Sabino Brice Consult reason: atrial fibrillation Chief complaint: new AFIB Narrative: I was consulted to see Be in cardiology consultation today for new onset atrial fibrillation. He is a 70 year old male with limited functionality at home because of his back issues. He has history of obesity and asthma. He denies any symptoms or high blood pressure in the past. He came to the hospital because he was getting short of breath in his called was not improving. When he came to the emergency room he was noted to have new onset atrial fibrillation rapid ventricular response. Started on Cardizem drip. Rate is not adequately controlled. He was diagnose with COVID and admitted for observation treatment of his atrial fibrillation. An echocardiogram done which showed normal LV ejection fraction but dilated right-sided chamber and also mildly dilated left atrium. He does not have any symptoms of significant palpitation. No clear orthopnea, PND. Does not recall ever being told that he has atrial fibrillation in the past. He is worried about atrial fibrillation because of his upcoming prostate biopsy surgery that is planned in October. Review of Systems 2 Constitutional: Constitutional: Reports malaise and Reports weakness Eyes: Eyes: Reports no additional eye complaints ENT: Reports nasal congestion Cardiovascular: Cardiovascular: Denies chest pain, Denies rapid heart rate, Denies leg edema, Denies lightheadedness, Denies Loss of Consciousness, Reports dyspnea and Denies orthopnea Respiratory: Respiratory: Reports dyspnea Gastrointestinal: Gastrointestinal: Reports no additional gastrointestinal complaints Genitourinary: Genitourinary: Reports no additional male genitourinary complaints Musculoskeletal: Musculoskeletal: Reports no additional musculoskeletal complaints Integumentary/Breasts: Skin/Breast: Reports system reviewed and no additional complaints, except as docu Neurologic: Reports system reviewed and no additional complaints, except as documented and Reports weakness Psychiatric: Psychiatric: Reports no additional psychiatric complaints [facility] Past Medical History Medical History BPH (benign prostatic hyperplasia) Social History Social History Household Members: None Housing: Apartment Housing Other:: Rooming house Do you presently have visiting nurse or other home services: No Comment: refusing alarms Patient Tobacco Use Status: Never used Tobacco Currently Displaying Signs/Symptoms of Drug Intoxication Withdrawal: No Do you feel safe in your current relationship?: Yes Spiritual Healthcare Practices: Orthodoxy Advance Directives: No Advance Directives Information Provided: Yes Do you have a plan to hurt others: No Plan Recently lost weight without trying: Unsure Eating poorly because of decreased appetite: Yes Nutrition Risks: No Nutritional Risk service: No Meds Allergies Allergy/AdvReac Type Severity Reaction Status Date / Time No Known Allergies Allergy Verified 09/16/25 09:37 Active Medications: Current Medications Acetaminophen (Acetaminophen 325 Mg Tablet) 650 mg PO Q6H PRN PRN Reason: Pain, Mild 1-3,fever,headache Last Admin: 09/16/25 21:56 Dose: 650 mg Albuterol/Ipratropium (Albuterol/Iprat 2.5/0.5mg 3 Ml Ampul.Neb) 3 ml INHALE Q4H PRN PRN Reason: Shortness of Breath/Wheezing Last Admin: 09/17/25 23:33 Dose: 3 ml Apixaban (Apixaban 5 Mg Tablet) 5 mg PO BID [facility] Last Admin: 09/18/25 09:24 Dose: 5 mg Aspirin (Aspirin Enteric Coated 81 Mg Tablet.Dr) 81 mg PO DAILY [facility] Last Admin: 09/18/25 09:24 Dose: 81 mg Atorvastatin Calcium (Atorvastatin Calcium 10 Mg Tablet) 10 mg PO DAILY [facility] Last Admin: 09/18/25 09:24 Dose: 10 mg Benzonatate (Benzonatate 100 Mg Capsule) 100 mg PO TID PRN PRN Reason: Cough Calcium Carbonate (Calcium Carbonate 750 Mg Tab.Chew) 750 mg PO Q4H PRN PRN Reason: Heartburn Guaifenesin/Dextromethorphan (Guaifenesin Dm 100/10/5 Ml 5 Ml Syrup) 5 ml PO Q6H PRN PRN Reason: Cough Diltiazem HCl 125 mg/ Sodium (Chloride) 125 mls @ 0 mls/hr IVCONT .Q0M [facility]; Protocol Last Titration: 09/17/25 21:52 Dose: 0 mg/hr, 0 mls/hr Magnesium Hydroxide (Milk Of Magnesia 30 Ml Oral.Susp) 30 ml PO DAILY PRN PRN Reason: Constipation Melatonin (Melatonin 3 Mg Tablet) 6 mg PO BEDTIME PRN PRN Reason: Insomnia Methylprednisolone Sodium Succinate (Methylprednisolone Sod Succ 40 Mg/Ml Vial) 40 mg IVPUSH Q12H [facility] Last Admin: 09/18/25 09:24 Dose: 40 mg Metoprolol Tartrate (Metoprolol Tartrate 25 Mg Tablet) 25 mg PO BID [facility]; Protocol Last Admin: 09/18/25 09:24 Dose: 25 mg Ondansetron HCl (Ondansetron Hcl 4 Mg/2 Ml Vial) 4 mg IVPUSH Q8H PRN PRN Reason: Nausea and Vomiting Sodium Chloride (0.9 % Sodium Chloride Flush 3 Ml Syringe) 3 ml IVFLUSH QSHIFT [facility] Last Admin: 09/18/25 09:24 Dose: 3 ml Tamsulosin HCl (Tamsulosin Hcl 0.4 Mg Capsule) 0.4 mg PO DAILY [facility] Last Admin: 09/18/25 09:24 Dose: 0.4 mg Home Medications ?Medication ?Instructions ?Recorded ?Confirmed ?Last Taken ?Type albuterol sulfate 90 mcg/actuation 1 puff inhalation Q 6H PRN 09/16/25 09/16/25 Unknown History aerosol inhaler Shortness Of Breath Or Wheez ing atorvastatin 10 mg tablet 10 mg PO DAILY 09/16/2509/0409/15/25 History tamsulosin 0.4 mg capsule 0.4 mg PO DAILY 09/16/2509/15/25 History Physical Exam 2 Vital Signs: Vital Signs: Last Vital Signs Temp 97.5 F 09/18/25 07:20 Pulse 86 09/18/25 09:24 Resp 18 09/18/25 07:20 BP 147/92 H 09/18/25 09:24 Pulse Ox 95 09/18/25 07:20 O2 Del Method Room Air 09/18/25 07:20 O2 Flow Rate 2 09/16/25 11:37 Oxygen Flow Rate 2 09/16/25 09:33 BMI result Body Mass Index 36.4 Const: General: cooperative, comfortable, no acute distress, alert and awake Nutritional Appearance: obese Orientation/consciousness: patient oriented x3 HEENT: Head: Yes normocephalic and Yes atraumatic Neck: Neck: Yes trachea midline, Yes supple and Yes no JVD Resp: Effort & Inspection: decreased respiratory effort Auscultation: no rales, no wheezes and diminished lung sounds Cardio: Jugular venous distension: no JVD Rate: regular rate Rhythm: a bnormal rhythm irregularly irregular Heart sounds: S1 normal heart sound present, S2 normal heart sound present, no click, no gallops and no murmurs GI: Auscultation: normal bowel sounds Skin: General skin exam: no rashes or lesions noted Neuro: General: patient oriented x3 and no focal motor deficits Extrem: General: Yes no clubbing, cyanosis or edema Objective Labs and Meds 09/16/25 09:47 09/16/25 09:47 Assessment and Plan (1) New onset atrial fibrillation: Status: Acute New onset atrial fibrillation this elderly gentleman with limited functionality probably triggered by his COVID infection with underlying structural heart issues with dilated right-sided chambers and left atrial enlargement. That has high likelihood of given his body habitus as well as his symptoms of snoring and daytime somnolence and cardiac structural abnormality to have underlying sleep apnea. Although acute thromboembolic disease needs to be ruled out. His rate is controlled on Cardizem therapy. I would start him Cardizem CD 240 mg for rate control for now as well as improvement in blood pressure control. He may have on diagnose hypertension blood pressure remains elevated. CHADSVASc score of 2 with biatrial enlargement puts him at high risk for thromboembolic complication would therefore consider Eliquis 5 mg b.i.d. for oral anticoagulation. He is planned to undergo prostate biopsy surgery in near future for which she is optimized from cardiac perspective as long as he takes his rate control therapy. Eliquis can be held 3 days prior to the procedure. Will set up for outpatient workup including Holter as well as a sleep study and follow up in the clinic after that. Will then discussed about potentially pursuing rhythm control approach once he has been back on Eliquis after the biopsy for at least 4 weeks. Will sign of the case. Thank you for allowing me to partake in his care Procedures Date of Service Date of Service: 09/18/25
[2025-09-18] MEDS: iohexoL 350 MG/ML 100 ML INFUS..BTL IV (12:51)
--- NOTE | 2025-09-18 13:38 | PM.DS ---
DS: Providers Provider Date of Service: 09/18/25 Date of admission: 09/17/25 10:39 Date of discharge: 09/18/25 Primary care physician: Leona Cabrera MD Consults: 09/17/25 12:23 Consult to Cardiology Routine Consulting Provider: [facility] [place] [facility] Reason for consultation: AFIB with RVR DS: Diagnosis Discharge Diagnosis (1) New onset atrial fibrillation: Status: Acute DS: Summary Hospital Course Hospital Course: Admission hpi Chief Complaint: new afib This is a 70 year old male who presented to the emergency department with shortness of breath. He states that he has had a head cold and thought he had the flu. He reports 3 days of cough productive of yellow phlegm, intermittent shortness of breath and nasal congestion. In the emergency department chest x-ray was negative for pneumonia, he tested positive for COVID 19. He was treated with IV solu-medrol and a breathing treatment and initially he was going to be discharged home however he was noted to be in new onset atrial fibrillation with rapid ventricular response. He was treated with Iv solu-medrol and a breathing treatment and admission was requested overnight for observation Hospital course: He presented with sob and found to have asthma with covid and was about to be discharged but went in AFIB with RVR and ended being put on IV cardizem drip giving heart rate still being high on oral metoprolol. He was initiated on Eliquis for Markus 2 Vasc score of 2. His heart rate is now controlled. He has been evaluated by cardiology and will be discharge dwith cardizem CD 240, eliquis 5 mg bid. Echo showed 1. Normal LV ejection fraction of 55-60% 2. Dilated right-sided chambers with moderately enlarged right Time Attestation Discharge Coordination Time (in mins): 40 Quality: Safe Use of Opioids Does Pt have an Active Cancer Diagnosis on the Problem List?: No Quality: Stroke Does the patient have a stroke diagnosis?: No Physical Exam Vital Signs: Vital Signs: Last Vital Signs Temp 97.7 F 09/18/25 11:19 Pulse 80 09/18/25 11:19 Resp 20 09/18/25 11:19 BP 131/84 09/18/25 11:19 Pulse Ox 95 09/18/25 11:19 O2 Del Method Room Air 09/18/25 11:19 O2 Flow Rate 2 09/16/25 11:37 Oxygen Flow Rate 2 09/16/25 09:33 BMI result Body Mass Index 36.4 Discharge Plan Discharge Anticipated Discharge Date/Time: 09/18/25 13:39 Patient Disposition: Home, Self-Care Discharge Diagnosis: Covid 19, asthma, new afib with RVR Referrals: Leona Cabrera MD [Primary Care Provider, Medical] - 1 Week Discharge Medications: New Eliquis 5 mg Tablet 5 mg PO BID Qty: 180 0RF diltiazem HCl [Cartia XT] 240 mg capsule,extended release 24hr 240 mg PO DAILY Qty: 90 0RF prednisone 20 mg tablet 40 mg PO DAILY Qty: 6 0RF Continued atorvastatin 10 mg tablet 10 mg PO DAILY tamsulosin 0.4 mg capsule 0.4 mg PO DAILY albuterol sulfate 90 mcg/actuation HFA aerosol inhaler 1 puff inhalation Q6H PRN (Reason: Shortness Of Breath Or Wheezing) Discharge Orders: Discharge Order (Routine); Ordered 09/18/25 Ordered By: Sabino Brice Diet: Advance to usual diet Activity on Discharge: As tolerated Stand Alone Forms: Patient Portal Discharge page Print Language: Irish Activity Restrictions/Additional Instructions: You were evaluated in the emergency department for shortness of breath, cough. Your labs are reassuring as there are no emergent abnormalities. Your viral swabs were positive for COVID infection today which is most likely the cause of your symptoms. COVID-19 is a self-limiting virus, ensure you were getting plenty of hydration, rest, and nutritious food as tolerated. It is normal for your appetite to be decreased during this time, make sure you are getting plenty of hydration through sports drinks, Pedialyte as you await the return of your appetite. To manage fever and/or pain at home you can take 500 milligrams of Tylenol, 400 milligrams of ibuprofen every 6 hours and use your albuterol inhalers as needed. You do not need an antibiotic as this is viral, however you are being prescribed course of 40 milligrams prednisone for shortness of breath., take for 3 more day Please follow up with your primary care doctor to ensure resolution of your symptoms. Please return to the emergency department if you experience fevers over 100.4 degrees that are not managed by Tylenol/ibuprofen, worsening shortness of breath, or any new/worsening/concerning symptoms. Care Plan Goals: recovery from covid 19, atshma and atrial fibrilation Health Concerns: asthma, covid, atrial fibrilation Plan of Treatment: take prednisone for 40 mg for 3 more days take cardizem for blood pressure and regulate your heart rate take eliquis to thin your blood and prevent stroke follow up with your doctor in a week, call for appointment follow up with heart docto, office will call you Assessment: see above Patient Instructions: Droplet Precautions (ED), Face Coverings (Masks) and COVID-19 (ED), How to Recover from COVID-19 at Home (ED)
[2025-09-18] MEDS: dilTIAZem HCL CD 240 MG CAP.ER.DEG PO (14:24)
--- NOTE | 2025-09-18 15:31 | MHC.CM.PN ---
Addendum entered by Laurie Curiel 09/18/25 15:33: PT CONFIRMS HE WILL NEED TRANSPORT TO HIS HOME AT [address] IN [place] PT CONFIRMS HIS PHONE NUMBER IS [phone], HE UNDERSTANDS [facility] UPDATES WILL BE SENT TO HIM DIRECTLY Original Note: PT CLEARED TO DC HOME TODAY WITH NO SERVICES CM WILL ARRANGE [facility] TRANSPORT FOR PT ONCE HE IS READY TO LEAVE
== END 2025-09-18 15:50 | disposition home or self-care (01) | DRG 308 ==
LOC: HO.ED 12:19 → HO.EDOVER 14:51 → HO.IMC 16:42
PROVIDERS: Admitting Provider Physician Assistant Medical; Emergency Provider Emergency Medicine; PCP Internal Medicine; Visit Provider Internal Medicine
DX: I48.91 Unspecified atrial fibrillation (principal); U07.1 COVID-19; J45.41 Moderate persistent asthma with (acute) exacerbation; N40.0 Benign prostatic hyperplasia without lower urinary tract symptoms; E78.5 Hyperlipidemia, unspecified; E66.9 Obesity, unspecified; Z68.36 Body mass index [BMI] 36.0-36.9, adult; Z79.899 Other long term (current) drug therapy
CPT/HCPCS: 36415; 71045; 71275; 80053; 82803; 83605; 83735; 84443; 84484; 85025; 85379; 87502; 87635; 93005; 93306; 94640; 99285; J1163; J1650; J2919; J7120; Q9957; Q9967

== ENCOUNTER → 2025-09-16 09:49 | Outpatient (BNV) | payer MEDICARE, MEDICAID, SELFPAY | PROVIDERS: Emergency Provider Emergency Medicine; PCP Internal Medicine; Visit Provider Internal Medicine Cardiovascular Disease | DX: I48.91 Unspecified atrial fibrillation (principal); I25.2 Old myocardial infarction | CPT/HCPCS: 93010 ==

== ENCOUNTER → 2025-09-16 10:45 | Outpatient (BNV) | payer MEDICARE, MEDICAID, SELFPAY | PROVIDERS: Emergency Provider Emergency Medicine; PCP Internal Medicine; Visit Provider Radiology Diagnostic Radiology | DX: R06.02 Shortness of breath (principal) | CPT/HCPCS: 71045 ==

== ENCOUNTER → 2025-09-17 07:00 | Outpatient (BNV) | payer MEDICARE, MEDICAID, SELFPAY | PROVIDERS: Admitting Provider Physician Assistant Medical; Emergency Provider Emergency Medicine; PCP Internal Medicine; Visit Provider Internal Medicine Cardiovascular Disease | DX: I34.0 Nonrheumatic mitral (valve) insufficiency (principal); I51.7 Cardiomegaly; I77.810 Thoracic aortic ectasia | CPT/HCPCS: 93306 ==

== ENCOUNTER → 2025-09-17 10:39 | Outpatient (BNV) | payer MEDICARE, MEDICAID, SELFPAY | PROVIDERS: Admitting Provider Physician Assistant Medical; Emergency Provider Emergency Medicine; PCP Internal Medicine; Visit Provider Internal Medicine Cardiovascular Disease | DX: I48.91 Unspecified atrial fibrillation (principal) | CPT/HCPCS: 99222 ==